=== PATIENT | male | born 1970 | race Caucasian/White ===

== ENCOUNTER → 2017-07-16 | Day surgery (SDC) | payer OTHER ==
[~2017-07-16] MED LIST: Dextrose 5%-Lactated Ringers 1,000 ML IV SCH; Glycopyrrolate 0.2 MG/ML 2 ML SDV IVPUSH ONE; Midazolam 1 MG/ML 2 ML SDV ONE; Propofol 200 MG/20 ML SDV ONE; fentaNYL 100 MCG/2 ML SDV ONE
--- NOTE | 2017-07-19 09:29 | OR ---
DATE OF PROCEDURE: 07/16/2017 PREOPERATIVE DIAGNOSIS: Epigastric pain and bloating. POSTOPERATIVE DIAGNOSIS: Very mild antral gastritis. OPERATIVE PROCEDURE: Esophagogastroduodenoscopy with antral biopsies for CLOtest. ANESTHESIA: IV sedation. INDICATIONS FOR PROCEDURE: This is a 46-year-old with probably several-year history of some episodic upper abdominal pain. This radiates to the back and appears to be related to certain foods; the patient seems to think pork for instance causes some problems with regard to these symptoms. He had a gallbladder ultrasound, which was negative, and the plan at this point is to proceed with upper GI endoscopy with biopsies as indicated. Potential risks including bleeding and perforation were discussed, and the patient wishes to proceed. PROCEDURE DETAILS: The patient was taken to the operating room and placed in a left lateral decubitus position. IV sedation was administered, after which the upper GI endoscope was passed orally through the length of the esophagus, into the stomach with retroflexion view of the fundus, thereafter through the pyloric channel into the junction of the third and fourth portions of the duodenum. Findings included normal hypopharynx, larynx, upper esophageal sphincter, and esophageal body. At the EG junction, no significant hiatal hernia was present nor was there any upward extension of the gastroesophageal junction mucosal line and no stricturing or other evidence of neoplasia. Within the stomach, there was some very mild redness in patches in the antrum without erosions or ulcers. The pyloric channel and proximal duodenum likewise had some patchy area of redness without erosions or ulcers, and the findings normalized beyond the duodenal bulb. At this point, biopsies were obtained from the antrum to check for the patient's H pylori status. Minimal bleeding from the biopsy sites was seen and the procedure then concluded. Given the relatively normal upper GI endoscopic findings and the episodic nature of the patient's discomfort and bloating symptoms, we will check a CCK-stimulated HIDA scan, we will obtain this later this week, and if that is negative, we probably would empirically treat him with some Protonix and see if that is helpful given the mild degree of gastritis present. Abdon Roberts MD /[id number]
--- NOTE | 2017-07-19 09:35 | PN ---
DATE OF SERVICE: 07/18/2017 Mr. Beal had a CCK-stimulated HIDA scan today. This showed an 84% ejection fraction. The CCK scan injection did cause some nausea and some mild discomfort in the right upper quadrant, but not a full reproduction of his symptoms that he has and episodes in the postprandial period. Given this, I think we will try him on a course of Protonix 40 mg a day, and we will see him back in about 2 weeks. We will see if he is still having symptoms after being on Protonix for a while. Given the fact that his symptoms are quite classic for biliary colic and the CCK scan injection did cause some overlap of those symptoms, we would proceed with a cholecystectomy at that time, but I think it is worthwhile trying to treat him with a proton pump inhibitor as somewhat of a diagnostic test initially. We will see him back in 2 weeks for a recheck. Abdon Roberts MD /[id number]
== END ==
LOC: JP.SDS 05:49
PROVIDERS: ATTEND Surgery
DX: R10.13 Epigastric pain (principal); R14.0 Abdominal distension (gaseous); K29.70 Gastritis, unspecified, without bleeding
CPT/HCPCS: 43239; 87081; J2250; J2704; J3010; J7042; J3490

== ENCOUNTER 2020-08-30 21:24 | Emergency (ER) | payer OTHER ==
--- NOTE | 2020-08-31 00:20 | EDM.PDOC ---
ED HPI GENERAL MEDICAL PROBLEM - General Chief Complaint: Neuro Symptoms/Deficits Stated Complaint: RIGHT SIDE NUMB FACE AND EXTREMITIES Time Seen by Provider: 08/30/20 21:54 Source of Information: Reports: Patient History Limitations: Reports: No Limitations - History of Present Illness INITIAL COMMENTS - FREE TEXT/NARRATIVE: Patient presents emergency room today secondary to an episode of right-sided facial numbness right arm numbness and unusable and patient states he was unable to talk he states that symptoms resolved fairly quickly he thinks within 1 to 2 minutes stated symptoms occurred around 8 PM tonight patient states he had a similar episode approximately 20 years ago when he was told it was a vasovagal some situation patient states that episode occurred while they were out on the [employer] boat tonight he had just returned from lifting a ladder off the back of the boat he was in the sitting position and doing nothing strenuous at that time. At this time patient states he is back to his normal baseline and is feeling no residual effects PMH--GERD Meds--Protonix NKDA Tob--former EtOH--occassional Drugs--rare COVID immunization (J&J)--May 2020 Onset: Today, Sudden - Related Data Allergies Allergy/AdvReac Type Severity Reaction Status Date / Time No Known Allergies Allergy Verified 08/30/20 21:54 Home Meds: Home Meds Pantoprazole 40 mg PO BEDTIME 08/30/20 [History] Past Medical History HEENT History: Reports: Impaired Vision Gastrointestinal History: Reports: GERD, Other (See Below) Other Gastrointestinal History: bloating and pain Dermatologic History: Reports: None - Infectious Disease History Infectious Disease History: Reports: Chicken Pox - Past Surgical History HEENT Surgical History: Reports: Other (See Below) Other HEENT Surgeries/Procedures: eye implants for experimental treatment GI Surgical History: Reports: None Dermatological Surgical History: Reports: Other (See Below) Social & Family History - Tobacco Use Tobacco Use Status *Q: Never Tobacco User - Caffeine Use Caffeine Use: Reports: Coffee, Soda ED ROS GENERAL - Review of Systems Review Of Systems: Comprehensive ROS is negative, except as noted in HPI. Constitutional: Reports: No Symptoms HEENT: Reports: No Symptoms Respiratory: Reports: No Symptoms Cardiovascular: Reports: No Symptoms Endocrine: Reports: No Symptoms GI/Abdominal: Reports: No Symptoms : Reports: No Symptoms Musculoskeletal: Reports: No Symptoms Skin: Reports: No Symptoms Neurological: Reports: Numbness, Paresthesia, Trouble Speaking, Weakness. Denies: Dizziness, Headache Psychiatric: Reports: No Symptoms Hematologic/Lymphatic: Reports: No Symptoms Immunologic: Reports: No Symptoms ED EXAM, NEURO - Physical Exam Exam: See Below Exam Limited By: No Limitations General Appearance: Alert, WD/WN, No Apparent Distress Eye Exam: Bilateral Eye: EOMI, Normal Inspection, PERRL Ears: Normal External Exam Nose: Normal Inspection Throat/Mouth: Normal Inspection, Normal Lips, Normal Teeth, Normal Voice, No Airway Compromise Head Exam: Atraumatic, Normocephalic Neck: Normal Inspection, Supple, Non-Tender, Full Range of Motion Respiratory/Chest: No Respiratory Distress, Lungs Clear, Normal Breath Sounds, Chest Non-Tender Cardiovascular: Normal Peripheral Pulses, Regular Rate, Rhythm, No Edema, No Murmur GI/Abdominal: Normal Bowel Sounds, Soft, Non-Tender (Male) Exam: Deferred Rectal (Males) Exam: Deferred Neurological: Alert, Normal Mood/Affect, Normal Dorsiflexion, CN II-XII Intact, Normal Plantar Flexion, No Motor/Sensory Deficits, Oriented x 3. No: Abnormal Finger to Nose Back Exam: Normal Inspection, Full Range of Motion Extremities: Normal Inspection, Normal Range of Motion, Normal Capillary Refill Psychiatric: Normal Affect, Normal Mood Skin Exam: Warm, Dry, Intact, Normal Color, No Rash #1 Interpretation EKG Date: 08/31/20 Time: 00:30 (Read by physician at 00 37 no STEMI) Rhythm: NSR (Jugular rate is 62) Rate (Beats/Min): 62 [place]: Normal P-Wave: Present (ME interval 174) QRS: Normal (URS duration is 98) ST-T: Normal QT: Normal (QT/QTc 422/429) EKG Interpretation Comments: Normal sinus rhythm normal EKG Course - Vital Signs Last Recorded V/S: Last Vital Signs Temp 97.7 F 08/30/20 21:55 Pulse 71 08/30/20 22:44 Resp 17 08/30/20 22:44 BP 104/73 08/30/20 22:44 Pulse Ox 98 08/30/20 21:55 - Orders/Labs/Meds Orders: Active Orders 24 hr Category Date Time Status EKG Documentation Completion [RC] ASDIRECTED Care 08/30/20 23:20 Active EKG 12 Lead [EK] Routine Ther 08/30/20 23:19 Ordered - Radiology Interpretation CT Results Date: 08/31/20 CT Results Time: 00:20 (Luminary reading by this physician no acute findings noted on head CT final radiology reading is pending) Departure - Departure Time of Disposition: 00:51 Disposition: Home, Self-Care 01 Condition: Good Clinical Impression: TIA (transient ischemic attack) - Discharge Information *PRESCRIPTION DRUG MONITORING PROGRAM REVIEWED*: Not Applicable *COPY OF PRESCRIPTION DRUG MONITORING REPORT IN PATIENT LAKHWINDER: Not Applicable Instructions: Transient Ischemic Attack, [id number] Referrals: Jude Salazar MD [Primary Care Provider] - Forms: ED Department Discharge Additional Instructions: Follow-up with your primary care provider in the next 1 to 2 days for further evaluation and management is strongly recommended Sepsis Event Note (ED) - Evaluation Sepsis Screening Result: No Definite Risk - Focused Exam Vital Signs: Vital Signs Temp Pulse Resp BP Pulse Ox 08/30/20 22:44 71 17 104/73 08/30/20 21:55 97.7 F 71 16 129/87 98 08/30/20 21:45 97.7 F 71 16 129/87 98 - My Orders Last 24 Hours: My Active Orders 08/30/20 23:19 EKG 12 Lead [EK] Routine 08/30/20 23:20 EKG Documentation Completion [RC] ASDIRECTED - Assessment/Plan Last 24 Hours: My Active Orders 08/30/20 23:19 EKG 12 Lead [EK] Routine 08/30/20 23:20 EKG Documentation Completion [RC] ASDIRECTED
--- NOTE | 2020-08-31 00:23 | CRLCT ---
For Patients: As a result of the Century Cures Act, medical imaging exams and procedure reports are released immediately into your electronic medical record. You may view this report before your referring provider. If you have questions, please contact your health care provider. INDICATION: Right-sided weakness, speech difficulty TECHNIQUE: Head CT without contrast. COMPARISON: None FINDINGS: CSF spaces: Within normal limits for age. Brain parenchyma: Normal yi-white junction. No sign of mass, hemorrhage, or midline shift. Skull base and calvarium: The visualized paranasal sinuses and mastoid air cells demonstrate no acute or significant findings. The visualized orbits are grossly unremarkable. No skull fractures. IMPRESSION: No acute abnormality. Please note that all CT scans at this facility use dose modulation, iterative reconstruction, and/or weight-based dosing when appropriate to reduce radiation dose to as low as reasonably achievable. Dictated by Beverly Schwarz MD @ 08/31/2020 12:21:[address] Beverly Schwarz @ Aug 31 2020 12:21AM
== END 2020-08-31 01:17 | disposition home or self-care (01) ==
LOC: JP.ED 21:24
DX: G45.9 Transient cerebral ischemic attack, unspecified (principal); K21.9 Gastro-esophageal reflux disease without esophagitis; Z79.899 Other long term (current) drug therapy
CPT/HCPCS: 70450; 93005; 99284-25

== ENCOUNTER 2020-10-17 07:23 | Day surgery (SDC) | payer OTHER ==
[2020-10-17] MEDS ORDERED: Propofol 200 MG/20 ML SDV ONE (07:59)
[2020-10-17] MEDS ORDERED: Midazolam 1 MG/ML 2 ML SDV ONE (07:59)
[2020-10-17] MEDS ORDERED: fentaNYL 100 MCG/2 ML SDV ONE (07:59)
[2020-10-17] MEDS ORDERED: Sodium Chloride 0.9% 1,000 ML IV SCH (08:00)
--- NOTE | 2020-10-17 09:40 | OR ---
DATE OF PROCEDURE: 10/17/2020 SURGEON: Lui Alvarez MD PROCEDURE: Colonoscopy. FINDINGS: Sigmoid colon polyp, approximately 5 mm, completely removed using cold biopsy forceps. COMPLICATIONS: None. [employer]: None. ANESTHESIA: MAC. PREOPERATIVE DIAGNOSIS: Screening colonoscopy. POSTOPERATIVE DIAGNOSIS: Screening colonoscopy. RISKS: Risks, benefits, alternatives, and limitations including, but not limited to infection, bleeding, perforation, false positives and false negatives were explained to the patient and he wished to proceed. PROCEDURE IN DETAIL: The patient was placed in left lateral decubitus position. Digital rectal exam was performed without abnormality. Scope was introduced and advanced atraumatically to the ileocecal valve. A photo was taken of the appendiceal orifice. Scope was brought back to the ascending, transverse, descending colon, and retroflexed. No evidence of old or new blood. The aforementioned polyp was identified and completely removed. No diverticulosis. No abnormalities on retroflexion. No colitis. Greater than 8 minutes was spent removing the scope. The prep was acceptable, approximately 90% of the luminal surface could be seen. Lui Alvarez MD /[id number]
== END 2020-10-17 09:39 | disposition home or self-care (01) ==
LOC: JP.SDS 07:23
PROVIDERS: ATTEND Surgery
DX: Z12.11 Encounter for screening for malignant neoplasm of colon (principal); K63.5 Polyp of colon; E78.5 Hyperlipidemia, unspecified; Z87.891 Personal history of nicotine dependence
CPT/HCPCS: 45380; J2250; J2704; J3010; J7030